=== PATIENT | female | born 1940 | race Two or more races ===

== ENCOUNTER 2023-09-08 14:11 | Emergency (ER) | payer OTHER ==
[2023-09-08 15:24] LABS: Basophils # (auto) 0.1 10 ^3/uL (0-0.2); Basophils % (auto) 1.1 % (0.0-2.0); Eosinophils # (auto) 0.2 10 ^3/uL (0-0.8); Eosinophils % (auto) 2.7 % (0.0-7.0); Hematocrit 36.6 % (36.0-46.0); Hemoglobin 12.3 g/dL (12.2-16.2); Lymphocytes # (auto) 2.3 10 ^3/uL (0.4-5.4); Lymphocytes % (auto) 27.8 % (10.0-50.0); Mean Corpuscular Hemoglobin 28.8 pg (28.0-32.0); Mean Corpuscular Hgb Conc. 33.7 g/dL (32.0-36.0); Mean Corpuscular Volume 85.6 fL (80.0-100.0); Monocytes # (auto) 0.5 10 ^3/uL (0-1.3); Monocytes % (auto) 6.3 % (0.0-12.0); Neutrophils # (auto) 5.2 10 ^3/uL (1.6-8.6); Neutrophils % (auto) 62.1 % (37.0-80.0); Nucleated Red Blood Cells % 0.1 %; Red Blood Cells 4.28 10^6/uL (4.0-5.20); Red Cell Distribution Width 13.7 % (11.8-14.3); White Blood Cell 8.4 10^3/uL (4.4-10.8)
[2023-09-08 15:53] LABS: Alanine Aminotransferase 16 U/L (7-40); Albumin 4.4 g/dL (3.2-4.8); Alkaline Phosphatase 104 U/L (46-116); Anion Gap 11 (5-15); Aspartate Aminotransferase 20 U/L (13-40); BUN/Creatinine Ratio 18.7 (10.0-20.0); Bilirubin, Total 0.2 mg/dL (0.2-1.0); Blood Urea Nitrogen 23 mg/dL (9-23); CRP High Sensitivity 0.14 mg/dL (<1.0); Calcium 9.9 mg/dL (8.5-10.1); Carbon Dioxide 26 mmol/L (20-30); Chloride 92 mmol/L (98-107); Glucose 164 mg/dL (74-106); Potassium 4.2 mmol/L (3.5-5.1); Sodium 129 mmol/L (136-145); Total Protein 7.2 g/dL (5.7-8.2)
[2023-09-08 16:00] LABS: Lactic Acid w/Reflex 2.8 mmol/L (0.4-2.0)
[2023-09-08] MEDS ORDERED: levoFLOXacin 500 MG TAB PO ONE (16:15)
[2023-09-08] MEDS ORDERED: SODIUM CHLORIDE 0.9% 1,000 ML IV ONE ×3 (16:15→22:30)
[2023-09-08 16:20] VITALS: PULSE 76; RESP 19; O2SAT 97
[2023-09-08 16:29] LABS: Lipase 35 U/L (12-53); Magnesium 2.3 mg/dL (1.6-2.6)
[2023-09-08] MEDS ORDERED: levoFLOXacin 500MG 100 ML IV ONE (16:45)
[2023-09-08 20:00] VITALS: PULSE 94; RESP 21; TEMP 97.9; O2SAT 95
[2023-09-08 21:04] LABS: Urine Bacteria NONE SEEN /hpf (None Seen); Urine Blood Negative /uL (Negative); Urine Clarity Clear (Clear); Urine Color Yellow (Yellow); Urine Hyaline Cast FEW /lpf (0 - 2); Urine Protein, UAD Negative (Negative); Urine Specific Gravity 1.007 (1.001-1.035); Urine Urobilinogen Normal (Negative); Urine WBC <1 /hpf (0 - 5); Urine pH 6.5 (5.0-8.0)
[2023-09-08] MEDS ORDERED: PIPERACILLIN-TAZOB 3.375GM 100 ML IV STA (22:38)
[2023-09-09] MEDS ORDERED: MET500T PO (00:07)
[2023-09-09] MEDS ORDERED: ACET-1079 PO (00:07)
[2023-09-09] MEDS ORDERED: LEVO500T91 PO (00:07)
[2023-09-09] MEDS ORDERED: ZOFR4T PO (00:16)
[2023-09-09] MEDS ORDERED: SODIUM CHLORIDE 0.9% 1,000 ML IV ONE (01:00)
[2023-09-09] MEDS ORDERED: PRAM0.752 PO (04:49)
[2023-09-09] MEDS ORDERED: FURO40TA4 PO (04:49)
[2023-09-09] MEDS ORDERED: MEMA1TAB5 PO (04:49)
[2023-09-09] MEDS ORDERED: LISI20TA56 PO (04:49)
[2023-09-09] MEDS ORDERED: AMLO5CAP2 PO (04:49)
[2023-09-09] MEDS ORDERED: METF-370 PO (04:49)
[2023-09-09] MEDS ORDERED: CHOL200031 PO (04:49)
[2023-09-09] MEDS ORDERED: GABA-1250 PO (04:49)
[2023-09-09] MEDS ORDERED: SELE5CAP3 PO (04:49)
[2023-09-09] MEDS ORDERED: LEVO25TA6 PO (04:49)
[2023-09-09] MEDS ORDERED: CYAN-17 PO (04:49)
[2023-09-09 05:56] LABS: Basophils # (auto) 0 10 ^3/uL (0-0.2); Basophils % (auto) 0.1 % (0.0-2.0); Eosinophils # (auto) 0 10 ^3/uL (0-0.8); Hematocrit 35.7 % (36.0-46.0); Lymphocytes # (auto) 1.1 10 ^3/uL (0.4-5.4); Lymphocytes % (auto) 7.3 % (10.0-50.0); Mean Corpuscular Hemoglobin 28.8 pg (28.0-32.0); Mean Corpuscular Hgb Conc. 33.6 g/dL (32.0-36.0); Mean Corpuscular Volume 85.8 fL (80.0-100.0); Monocytes # (auto) 0.5 10 ^3/uL (0-1.3); Monocytes % (auto) 3.1 % (0.0-12.0); Neutrophils # (auto) 13.7 10 ^3/uL (1.6-8.6); Neutrophils % (auto) 89.5 % (37.0-80.0); Red Blood Cells 4.16 10^6/uL (4.0-5.20); Red Cell Distribution Width 13.9 % (11.8-14.3); White Blood Cell 15.3 10^3/uL (4.4-10.8)
[2023-09-09 06:13] LABS: Calcium 8.9 mg/dL (8.5-10.1); Chloride 97 mmol/L (98-107); Sodium 131 mmol/L (136-145)
[2023-09-09 06:14] LABS: Anion Gap 12 (5-15); Carbon Dioxide 22 mmol/L (20-30)
[2023-09-09 06:19] LABS: BUN/Creatinine Ratio 15.6 (10.0-20.0); Blood Urea Nitrogen 14 mg/dL (9-23); Glucose 155 mg/dL (74-106)
[2023-09-09 06:41] LABS: Lactic Acid w/Reflex 2.2 mmol/L (0.4-2.0)
[2023-09-09] MEDS ORDERED: PIPERACILLIN-TAZO 4.5GM 100 ML IV ONE (07:15)
[2023-09-09 08:00] VITALS: PULSE 84; RESP 18; O2SAT 93
[2023-09-09 10:50] LABS: Hematocrit 34.6 % (36.0-46.0); Hemoglobin 11.6 g/dL (12.2-16.2)
[2023-09-09 11:31] VITALS: BP 120/34; PULSE 84; RESP 20; O2SAT 97
== END 2023-09-09 12:21 | disposition home or self-care (01) ==
LOC: ER 14:11 → EDBD 14:11 → ER 09-09 12:21
DX: R55 Syncope and collapse (principal); K52.9 Noninfective gastroenteritis and colitis, unspecified; E86.0 Dehydration; I95.9 Hypotension, unspecified; R53.1 Weakness; E11.9 Type 2 diabetes mellitus without complications; I10 Essential (primary) hypertension; R06.02 Shortness of breath; E78.5 Hyperlipidemia, unspecified; Z79.899 Other long term (current) drug therapy; Z79.01 Long term (current) use of anticoagulants
CPT/HCPCS: 36415; 71045; 74176; 80048; 80053; 81001; 82270; 82962; 83605; 83690; 83735; 83880; 84484; 85014; 85018; 85025; 85048; 86141; 87040; 87045; 87177; 87427; 87493; 93005; 96361; 96365; 96366; 96367; 99285; J2543; J7030